=== PATIENT | female | born 1980 | race Caucasian/White ===

== ENCOUNTER 2021-03-02 19:11 | Emergency (ER) | payer MEDICAID, SELFPAY | END 2021-03-02 21:26 | disposition left against medical advice (07) | LOC: HO.ED 20:38 | PROVIDERS: Emergency Provider Emergency Medicine | DX: Z76.0 Encounter for issue of repeat prescription (principal) ==

== ENCOUNTER 2022-08-16 01:06 | Emergency (ER) | payer MEDICAID, SELFPAY ==
[2022-08-16] VITALS (16 sets, daily range): BP systolic 85–117; BP diastolic 46–75; PULSE 75–133; RESP 12–30; TEMP 36.4–36.6; O2SAT 93–98; BMI 26.6
--- NOTE | 2022-08-16 01:17 | PC.NURSE ---
Pt brought to ER by friends. Pt was unresponsive in the passenger seat of a car. Friends stated she had an unknown amount of heroin, which was supposed to be cocaine. Pt also has a hx of seizures. Pt had garbled speech and was unable to support her own weight. 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 Pt was put in a wheelchair and brought to room 4. Pt was given 4 mg nasal narcan by RN and became responsive. Pt then started fighting staff, hitting, kicking, and biting at staff. Pt is throwing up brown chunky vomit. Pt was physically restrained and given ativan, haldol, and benadryl IM. Pt continues to fight with staff, is speaking clearly. Pt is not oriented, will not follow instructions.
--- NOTE | 2022-08-16 01:19 | ED.OVERDOSE ---
HPI - Overdose General Chief Complaint: Overdose Stated Complaint: Overdose Time Seen by Provider: 08/16/22 01:16 Source: other (Significant other) Mode of arrival: wheelchair Limitations: other History of Present Illness HPI Narrative: Patient comes to the emergency room for an overdose. Patient came by private vehicle, patient's significant other dropped her off in the ED. Patient has been drinking and using drugs. According to the boyfriend, the patient thought that she was using cocaine but instead it was heroin. Patient's boyfriend gave her 2 doses of intranasal Narcan (8 mg), when patient arrived to emergency room, patient was barely responsive, patient had to be pulled out of the car by security and nurses. In triage patient got another dose of 4 mg of nasal, total of 12 mg per patient had good response. Patient presents to the emergency room combative, fighting staff, trying to hit, kick, bite and punch Related Data Allergies Allergy/AdvReac Type Severity Reaction Status Date / Time No Known Allergies Allergy Verified 08/16/22 01:17 Review of Systems Review of Systems: Yes Unobtainable due to mental condition [facility] Past Medical History Medical History Alcohol abuse Social History Social History Alcohol intake: current Smoked in Last 30 Days: Yes Use of substances other than those prescribed or required for medical reasons: Yes Advance Directives: No Advance Directives Information Provided: No Physical Exam Vital Signs: Vital Signs: Last Vital Signs Pulse 126 H 08/16/22 01:45 Resp 26 H 08/16/22 01:45 Pulse Ox 98 08/16/22 01:45 O2 Del Method Room Air 08/16/22 01:45 BMI result Body Mass Index 26.6 Const: Other: Appearance: Alert. Combative, kinking, punching, biting and spitting at staff Eyes: Pupils equal, round and reactive to light. ENT: Pharynx normal. Neck: Normal inspection. Neck supple. No lymph nodes noted. No crepitus CVS: Normal heart rate and rhythm. Pulses normal. Normal S1 and S2, coughing, sneezing Respiratory: No respiratory distress. Breath sounds normal. No Wheezing. No rales Abdomen: Soft and nontender. No rigidity. No distention. Actively vomiting Skin: Skin warm and diaphoretic. Normal skin color. Normal skin turgor. Extremities: No lower extremity edema. No Lacerations. No Rash Neuro: Combative, CN 2 through 12 grossly intact Psych: Combative Course Course Course Narrative: -patient receive a total of 12 mg of Narcan intranasally -patient is in 4 point restraints -patient receive IM Benadryl, Ativan, Haldol, Zofran -patient is slowly coming down -plan: Metabolize to freedom -when patient is more awake, we will reassess for suicidal/homicidal ideation -upon discharge, patient will need Narcan -care team/sude eval pending -patient continues being agitated. Patient given 20 mg of IM Geodon -space operations officer, patient seems to be coming down, but still slightly agitated -position observation started at 02:00 Medications Administered Discontinued Medications Generic Name Dose Route Start Last Admin Trade Name Mikey PRN Reason Stop Dose Admin Diphenhydramine HCl 50 mg 08/16/22 01:28 08/16/22 01:15 Diphenhydramine Hcl 50 Mg/Ml Vial IM 08/16/22 01:29 50 mg ONCE ONE Administration Haloperidol Lactate 5 mg 08/16/22 01:28 08/16/22 01:15 Haloperidol Lactate 5 Mg/Ml Vial IM 08/16/22 01:29 5 mg STAT STA Administration Lorazepam 2 mg 08/16/22 01:28 08/16/22 01:15 Lorazepam 2 Mg/Ml Vial IM 08/16/22 01:29 2 mg STAT STA Administration Naloxone HCl 4 mg 08/16/22 01:43 08/16/22 01:08 Naloxone Hcl Nasal 4 Mg [place] NOSTRILALT 08/16/22 01:44 4 mg ONCE ONE Administration Ondansetron HCl 4 mg 08/16/22 01:28 08/16/22 01:31 Ondansetron Hcl 4 Mg/2 Ml Vial IVPUSH 08/16/22 01:29 4 mg ONCE ONE Administration Ziprasidone 20 mg 08/16/22 01:42 08/16/22 01:50 Ziprasidone Mesylate 20 Mg Vial IM 08/16/22 01:43 20 mg ONCE ONE Administration Discharge Plan Discharge Clinical Impression: Drug overdose Patient Disposition: Still a Patient
--- NOTE | 2022-08-16 01:51 | PC.NURSE ---
Pt continues to pull at restraints and will not follow instructions. aware, ordered geodone which was administered. Pt has a 1:1 sitter and is still in 4 point restraints.
--- NOTE | 2022-08-16 02:52 | PC.NURSE ---
Pt continues to pull on restraints and fight with staff. Restraints continued.
--- NOTE | 2022-08-16 03:01 | PC.NURSE ---
Pt is now asleep, responsive to tactile stimuli. Physical restraints removed from all extremities. Pt O2 noted to be decreased into 80'2, placed pt on 3 LPM O2 via NC and capnography. Pt was changed into a clean kamille and given a warm blanket. Pt has a 20g IV in the right AC, is on the personnel monitor. Waiting for pt to sober up at this time.
--- NOTE | 2022-08-16 03:50 | MHC.EDTECH ---
Late Entry, patient was changed into hospital attire and belongings were placed in [place]. Security at bedside for pattern changer.
--- NOTE | 2022-08-16 03:58 | PC.NURSE ---
Iv placed in right AC, Provider notified of low blood pressure 84/50 Dr. Borjas, Fluid started per Apr. Will continue to monitor, Notified pt NATALYA Barreto
--- NOTE | 2022-08-16 04:23 | PC.NURSE ---
Pt BP noted to be low. Dr Rees at the bedside, we put pt in reverse trendelenburg and I put a pressure bag on her fluids. Will continue to monitor.
--- NOTE | 2022-08-16 04:24 | PC.NURSE ---
Pt noted to have bruising on her arms, two large spots on her right upper arm, and bruises on her left arm that appear to be in the pattern of finger prints. Bruising also present on the neck, possibly caused by IV drug use.
--- NOTE | 2022-08-16 04:27 | MHC.EDTECH ---
Patient's vitals were taken, patient had a BP of 85/46 RN Mary Lou and MD were made aware. Patient is sleeping at this time. call fountain is within reach
--- NOTE | 2022-08-16 05:02 | PC.NURSE ---
After 2L normal saline, BP improved. Per Dr. Rees, I started another liter.
[2022-08-16] MEDS: 0.9 % Sodium Chloride 1,000 ML 999 ML IV (05:06)
--- NOTE | 2022-08-16 06:20 | MHC.EDTECH ---
This tech was making rounds, vitals taken and patient was a 1 assist to commode,pt urinated 800cc of yellow urine. UA obtained and sent to lab. Call fountain within reach
--- NOTE | 2022-08-16 08:45 | PC.NURSE ---
sr on monitor, skin wpd, has been sleeping all morning, resp even and unlabored, vss
--- NOTE | 2022-08-16 10:01 | MHC.RECOVRN ---
This senior mortgage underwriter met with patient, patient sleeping, nasal cannula on. Pt unable to answer questions at this time, will return when pt more alert to complete SUDE.
--- NOTE | 2022-08-16 11:01 | PC.NURSE ---
alert, steady gait, skin wpd, no si, nad, no complaints,
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
== END 2022-08-16 12:04 | disposition home or self-care (01) ==
PROVIDERS: Emergency Provider Emergency Medicine
DX: R40.4 Transient alteration of awareness (principal); T40.1X1A Poisoning by heroin, accidental (unintentional), initial encounter; Y92.9 Unspecified place or not applicable; F10.10 Alcohol abuse, uncomplicated; Y90.9 Presence of alcohol in blood, level not specified; R45.6 Violent behavior
CPT/HCPCS: 80307; 81003; 96361; 96372; 96374; 99285; J1200; J2060; J2405; J3486

== ENCOUNTER 2023-04-28 18:59 | Emergency (ER) | payer MEDICAID, SELFPAY ==
[2023-04-28 19:41] VITALS: BP 114/75; PULSE 108; RESP 18; TEMP 36.7; O2SAT 100; BMI 18.6
[2023-04-28 22:03] VITALS: BP 121/77; PULSE 69; RESP 20; TEMP 36.6; O2SAT 99
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
[2023-04-28] MEDS: Lidocaine HCl 1 % MPF 2 ML VIAL INFILTRATI ×2 (22:42)
[2023-04-28 22:46] VITALS: BP 121/77; PULSE 69; RESP 20; TEMP 36.6; O2SAT 99
== END 2023-04-28 22:47 | disposition home or self-care (01) ==
PROVIDERS: Emergency Provider Internal Medicine
DX: S91.312A Laceration without foreign body, left foot, initial encounter (principal); X58.XXXA Exposure to other specified factors, initial encounter; Y93.89 Activity, other specified; Y92.9 Unspecified place or not applicable; Y99.9 Unspecified external cause status
CPT/HCPCS: 12002; 99284

== ENCOUNTER 2023-06-06 15:19 | Outpatient (REF) | payer MEDICAID, SELFPAY ==
--- NOTE | ~2023-06-06 | XR_ITS ---
EXAMINATION: XR ANKLE, LEFT CLINICAL INFORMATION: Rule out osteomyelitis medial malleolus COMPARISON: None available. TECHNIQUE: AP, lateral, and mortise views of the left ankle. FINDINGS: Bone alignment is normal. No fracture or dislocation. Normal ankle mortise. There is slight cortical irregularity of the medial malleolus with lucency and surrounding sclerosis. Appearance is questionable for osteomyelitis. There is adjacent medial soft tissue swelling. XR/XR ankle LT min 3V IMPRESSION: Cortical irregularity of the medial malleolus questionable for osteomyelitis. Adjacent soft tissue swelling. Findings will be communicated by the [place] work flow catalogue librarian.
== END 2023-06-06 15:20 | disposition home or self-care (01) ==
LOC: HO.HHCX 15:19
PROVIDERS: Visit Provider Emergency Medicine
DX: S99.912S Unspecified injury of left ankle, sequela (principal)
CPT/HCPCS: 36415; 73610; 85025; 85652; 86140

== ENCOUNTER 2023-06-06 15:30 | Outpatient (REF) | payer MEDICAID, SELFPAY ==
[2023-06-06 16:07] LABS: MANUAL DIFF FLAG NO
[2023-06-06 16:12] LABS: Basophils Percent Auto 0.4 % (0-2); Eosinophils Percent Auto 0.4 % (0-4); Hematocrit 40.4 % (37.0-47.0); Hemoglobin 12.8 g/dl (12.0-16.0); Imm Gran Abs Auto 0.03 X10*3/uL (0.00-0.03); Imm Gran Pct Auto 0.4 % (0.0-0.4); Lymphocytes Absolute Auto 1.6 X10*3/uL (1.2-4.9); Lymphocytes Percent Auto 21.2 % (20-40); Mean Corpuscular HGB Conc 31.7 g/dl (31.0-35.0); Mean Corpuscular Hemoglobin 29.9 pg (27.0-33.0); Mean Corpuscular Volume 94.4 fL (80.0-98.0); Mean Platelet Volume 8.8 fL (9.4-12.3); Monocytes Absolute Auto 0.5 X10*3/uL (0.1-1.2); Monocytes Percent Auto 6.7 % (2-11); Neutrophils Absolute Auto 5.3 x10*3/uL (2.0-8.3); Neutrophils Percent Auto 70.9 % (45-73); Platelet Count 310 X10*3/uL (160-400); Red Blood Count 4.28 X10*6/uL (4.20-5.50); Red Cell Distribution Width 13.2 % (11.0-16.0); White Blood Count 7.4 X10*3/uL (4.8-10.8)
[2023-06-06 16:32] LABS: C Reactive Protein 0.27 mg/dL (< or = 0.50)
[2023-06-06 17:03] LABS: Erythrocyte Sedimentation Rate 22 MM/HR (0-20)
== END 2023-06-06 15:31 | disposition home or self-care (01) ==
LOC: HO.HHCL 15:30
PROVIDERS: Visit Provider Emergency Medicine
DX: S99.912S Unspecified injury of left ankle, sequela (principal)
CPT/HCPCS: 36415; 85025; 85652; 86140

== ENCOUNTER 2023-12-17 20:48 | Emergency (ER) | payer MEDICAID, SELFPAY ==
[2023-12-17 21:01] VITALS: BP 98/71; PULSE 118; RESP 14; TEMP 36.9; O2SAT 100
[2023-12-17 21:44] VITALS: PULSE 104; RESP 18; O2SAT 97
[2023-12-17 22:21] VITALS: BP 106/66; PULSE 101; RESP 14; TEMP 37.4; O2SAT 98
--- NOTE | 2023-12-17 22:23 | PC.NURSE ---
MD to bedside for primary eval.
--- NOTE | 2023-12-17 22:24 | ED.OVERDOSE ---
HPI - Overdose General Chief Complaint: Overdose Stated Complaint: OD 4mg narcan given, caox4 Time Seen by Provider: 12/17/23 22:14 Source: patient and EMS Mode of arrival: EMS Limitations: no limitations History of Present Illness ED Provider: DR. Hernandez HPI Narrative: 43-year-old female known history of IV drug abuse came in by ambulance after was found unresponsive by her friend, patient admitted to shooting heroin in her right side of her neck before the event only used half a bag., patient was given 4 mg Narcan intranasally and regained her consciousness after, no SI, no HI, no visual or auditory hallucination. Related Data Allergies Allergy/AdvReac Type Severity Reaction Status Date / Time No Known Allergies Allergy Verified 12/17/23 21:05 Review of Systems Review of Systems: All other systems are reviewed and are negative Constitutional: Reports as per HPI and Reports no additional constitutional complaints Eyes: Reports as per HPI and Reports no additional eye complaints Reports system reviewed and no additional complaints, except as documented Cardiovascular: Reports as per HPI and Reports no additional cardiovascular complaints Respiratory: Reports as per HPI and Reports no additional respiratory complaints Gastrointestinal: Reports as per HPI and Reports no additional gastrointestinal complaints Genitourinary: Reports no additional female genitourinary complaints Musculoskeletal: Reports no additional musculoskeletal complaints Skin/Breast: Reports system reviewed and no additional complaints, except as docu Psychiatric: Reports no additional psychiatric complaints Endocrine: Reports no additional endocrine complaints Hematologic/Lymphatic: Reports no additional hematologic/lymphatic complaints Allergic/Immunologic: Reports no additional allergic/immunologic complaints Reports system reviewed and no additional complaints, except as documented and Reports Abnormal speech present [facility] Past Medical History Medical History Alcohol abuse Social History Social History Alcohol intake: current Alcohol intake frequency: does not drink Smoked in Last 30 Days: Yes Substance Use Type: Crack/Cocaine and Heroin Advance Directives: No Advance Directives Information Provided: No Do you have a plan to hurt others: No Plan Patient : No Physical Exam Vital Signs: Vital Signs: Last Vital Signs Temp 99.3 F 12/17/23 22:21 Pulse 101 H 12/17/23 22:21 Resp 14 12/17/23 22:21 BP 106/66 12/17/23 22:21 Pulse Ox 98 12/17/23 22:21 O2 Del Method Room Air 12/17/23 22:21 BMI result Body Mass Index 20.0 Vital signs have been reviewed and appear to be correct. Blood pressure elevated. Heart rate elevated. Respiratory rate normal. Temperature normal. Oxygen saturation normal. Appearance: Alert. Oriented X3. No acute distress. Head: Normal external exam. Normocephalic. Atraumatic. No Espino signs noted. No raccoon eyes noted Eyes: PERRLA. EOMI. Conjunctiva and sclera normal. Eyelids normal. ENT: TM's Normal. Pharynx normal. Uvula midline. Moist mucous membranes. No trismus noted. No drooling noted. No muffled voice noted. Neck: Normal inspection. Neck supple. FROM. No adenopathy. Thyroid Normal. No meningeal signs. No neck mass noted. CVS: Normal heart rate and rhythm. Heart sound normal. No murmurs noted. Pulses normal throughout. Respiratory: No respiratory distress. Painless inspiration. Breath sounds normal. No wheezes/rales/rhonchi noted. Chest nontender. No accessory muscle usage noted or decreased air movement noted. Abdomen: Soft and nontender. Bowel sounds normal in all 4 quadrants. No distention noted. No organomegaly noted. No visible injury noted. Back: No CVA tenderness. Full range of motion noted. Skin: Skin warm and dry. Normal skin color. Normal skin turgor. No rashes/lesions/lacerations noted. Extremities: No lower extremity edema. Extremities exhibit normal range of motion. Extremities nontender. Neuro: Oriented X 3. Cranial nerve exam: II-XII are grossly intact No motor deficit. No sensory deficit. Reflexes normal. Patient Orientation: Person, Place, Time and Situation, okay hygiene and grooming. Fair eye contact, attentive, no tics or tremors. Level of Consciousness: Awake, Appropriate and Alert Patient Behavior: Appropriate, Guarded, Cooperative and Anxious Mood Description: Constricted, Blunted and Apprehensive Affect Description: Constricted, Blunted and Apprehensive Patient Cognition Impaired: No Ability to Follow Directions: Excellent Speech Pattern: Clear, Appropriate and Spontaneous Speech, nonpressured, spontaneous with regular rate and rhythm, normal volume and prosody. No dysarthria. Memory Description: Intact, Immediate Intact and Short Term Intact Hallucinations: None Delusions: Not Present Thought Process: Intact Thought Content: positive for Intact, positive for Logical, denies Suicidal Ideation and denies Homicidal Ideation. Depressive Symptoms: Not present. Judgement and Insight: Limited but adequate. Course Reevaluation(s) Reevaluation #1: Unresponsive after IV heroin use responded to the Narcan, no SI, no HI, no hallucination. Now she is awake alert oriented x3. Time: 22:40 Medications Administered Discontinued Medications Generic Name Dose Route Start Last Admin Trade Name Freq PRN Reason Stop Dose Admin Naloxone HCl 8 mg 12/17/23 22:22 12/17/23 22:28 Naloxone Hcl Nasal Take Home 4 Mg [place] NOSTRILALT 12/17/23 22:23 8 mg ONCE ONE Administration Medical Decision Making Differential Diagnosis Differential Diagnoses: The differential diagnosis associated with the presentation includes (Suicidal ideation, acute psychosis, heroin overdose.) Admission/Observation Consideration of admission/observation: Escalation of care including admission/observation considered Discharge Plan Discharge Clinical Impression: Drug overdose Patient Disposition: Home, Self-Care Instructions: Adult Overdose (ED) Print Language: Macedonian
[2023-12-17] MEDS: Naloxone HCl Nasal TAKE HOME 4 MG SPRAY 8 MG NOSTRILALT (22:28)
--- NOTE | 2023-12-17 22:47 | PC.NURSE ---
Pt resting on stretcher offers no complaints remain A&Ox3 skin pwd respirations even unlabored. Awaiting care team eval, aware of plan of care.
[2023-12-18] VITALS: BP 106/66; PULSE 89; RESP 16; O2SAT 97
[2023-12-18 01:46] VITALS: BP 92/62; PULSE 84; RESP 16; TEMP 36.9; O2SAT 98
--- NOTE | 2023-12-18 01:48 | MHC.EDTECH ---
0200 rounding ,Patient awake asked for hardik cassie ,vitals taken ,no apparent distress noted ,Plan of care continue .
[2023-12-18 04:00] VITALS: RESP 16
--- NOTE | 2023-12-18 05:38 | PC.NURSE ---
Pt resting on stretcher, skin pwd respirations even unlabored, NAD. Awaiting recovery in am. Aware of plan of care.
--- NOTE | 2023-12-18 07:00 | PC.NURSE ---
Report given to Cari HOANG pt exits my care at this time.
[2023-12-18 08:51] VITALS: BP 95/70; PULSE 89; RESP 12; TEMP 36.8; O2SAT 100
[2023-12-18] MEDS: methADONE HCl 20 MG/2 ML ORAL.CONC 30 MG PO (09:52)
[2023-12-18 10:05] VITALS: BP 95/70; PULSE 89; RESP 12; TEMP 36.8; O2SAT 100
--- NOTE | 2023-12-18 10:08 | MHC.RECOVSUP ---
Saw Patient with Nurse Man, then did 1on1. Discussed history, progression, risks. Went over support system, did some motivational interviewing. Attempted to formulate a plan besides getting her dose and LDL. She decided to have me submit a L Tacker referral to Drew Clark at [facility].
--- NOTE | 2023-12-18 11:02 | HO.SUDE ---
Addendum entered by Angelica Man 12/18/23 11:20: Pts referral sent to [facility]. Original Note: Presenting Problem: Pt EDNA from home after family member called EMS for pt overdose. 4mg intranasal narcan given by family member prior to EMS arrival, on arrival pt A&Ox3. Precipitating Factors: Prior to arrival pt reports using her rinse (rinsed out cotton from prior use) due to feeling withdrawal and not having heroin/fentanyl available. Substances currently using: heroin/fentanyl and cocaine Was a UDS performed??No Pt currently using heroin/fentanyl, 1 or 2 bags daily, IV since November 13. Prior to November 13 patient had been in [facility] x 6 months. Prior to [facility] pt had been using 3 bundles daily, IV. Pt reports cocaine use, $5-$10, IV, every other day. Pt reports while being in [facility], and prior to, she had been on methadone, 80 mg x years. Pt reports upon release from [facility] she was not provided with a last dose letter and was unable to dose at the [facility]. Pt reports she had attempted Suboxone initiation however was unable to parts picker medication from pharmacy due to insurance card issue. Pt would like to restart methadone and return to [facility]. Pt currently reporting withdrawal symptoms including feeling hot/cold, restlessness, sneezing, and watery eyes. Pt reports over 15 overdoses in her lifetime. Treatment History: Reports hx ATS, long-term house, sober house. Longest time in recovery was 3 years. Utilized methadone and meetings during that time. Pts recurrence after 3 years happened in Jan 2023. Any history of self harm or suicide attempt(s)? Yes, hx self harm and suicide attempts. Last attempt in 2020. *Family history of substance use (past or present): brother is in recovery, parents have AUD *Behavioral Health Treatment History: admissions x 4, hx therapy *Current Concerns: denies SI, no current concerns *HIV, HCV, TB Risk: At risk Treatment Recommendations/Plan: Plan to administer 30 mg methadone and follow up with [facility]. Pt will also meet with [facility] specialist.
== END 2023-12-18 10:05 | disposition home or self-care (01) ==
PROVIDERS: Emergency Provider Emergency Medicine
DX: R40.4 Transient alteration of awareness (principal); T40.1X1A Poisoning by heroin, accidental (unintentional), initial encounter; Y92.9 Unspecified place or not applicable
CPT/HCPCS: 99284; 99285